=== PATIENT | female | born 1955 | race Asian ===

== ENCOUNTER 2021-05-27 14:45 | Emergency (ER) | payer OTHER ==
[~2021-05-27] VITALS: Ht 160 cm; Wt 61.8 kg
[2021-05-27 14:54] VITALS: BP 132/94
[2021-05-27] MEDS ORDERED: LIDO1ADH83 TP (17:59)
[2021-05-27] MEDS ORDERED: ACET-66 PO (17:59)
[2021-05-27] MEDS ORDERED: IBUP-2124 PO (17:59)
== END 2021-05-27 18:08 | disposition home or self-care (01) ==
LOC: EMS 14:45
DX: M76.31 Iliotibial band syndrome, right leg (principal); I10 Essential (primary) hypertension; E78.00 Pure hypercholesterolemia, unspecified
CPT/HCPCS: 73552; 99284; 73562-TC; Z7502